=== PATIENT | female | born 1965 | race Hispanic/Latino ===

== ENCOUNTER 2017-03-14 04:15 | Emergency (ER) | payer OTHER ==
[~2017-03-14 04:15] MED LIST: LANS1COM10 PO; SERT50TA PO
[2017-03-14] MEDS ORDERED: ACETAMINOPHEN 325 MG TAB ONE (04:44)
[2017-03-14] MEDS ORDERED: KETOROLAC TROMETHAMINE 30MG/ML ONE (04:44)
== END 2017-03-14 06:00 | disposition home or self-care (01) ==
LOC: EDH 04:15
DX: G44.229 Chronic tension-type headache, not intractable (principal); G50.0 Trigeminal neuralgia; J10.1 Influenza due to other identified influenza virus with other respiratory manifestations; Z90.710 Acquired absence of both cervix and uterus
CPT/HCPCS: 87804 ×2; 96372; 99284; J1885

== ENCOUNTER 2017-08-08 16:36 | Emergency (ER) | payer OTHER ==
[2017-08-08] MEDS ORDERED: KETOROLAC TROMETHAMINE 30MG/ML ONE (16:54)
== END 2017-08-08 17:40 | disposition home or self-care (01) ==
LOC: EDH 16:36
DX: G50.0 Trigeminal neuralgia (principal); J45.909 Unspecified asthma, uncomplicated; Z90.710 Acquired absence of both cervix and uterus; Z90.49 Acquired absence of other specified parts of digestive tract; Z98.890 Other specified postprocedural states
CPT/HCPCS: 96372; 99283; J1885

== ENCOUNTER → 2018-06-14 | Outpatient (CLI) | payer OTHER ==
[2018-06-14 09:55] LABS: BASOPHILS % (AUTO) 0.8 % (0.0-5.0); EOSINOPHILS % (AUTO) 2.5 % (0.0-8.0); HEMATOCRIT 40.3 % (36-48); LYMPHOCYTES % (AUTO) 34.6 % (21.0-51.0); MEAN CORPUSCULAR HEMOGLOBIN 29.1 pg (27.0-33.0); MEAN CORPUSCULAR HGB CONC 34.5 g/dL (32.0-36.0); MEAN CORPUSCULAR VOLUME 84.4 fL (79-99); MONOCYTES % (AUTO) 5.8 % (3.0-13.0); NEUTROPHILS % (AUTO) 56.3 % (40.0-77.0); NUCLEATED RED BLOOD CELLS 0.1 % (0.0-0.19); PLATELET COUNT (AUTO) 169 K/uL (130-400); RED BLOOD CELL COUNT(AUTO) 4.78 MIL/uL (4.00-5.50); RED CELL DISTRIBUTION WIDTH 12.9 % (11.0-15.5); WHITE BLOOD COUNT (AUTO) 7.3 K/uL (4.8-10.8)
== END | disposition home or self-care (01) ==
LOC: LAB 09:36
PROVIDERS: ATTEND Internal Medicine
DX: J44.9 Chronic obstructive pulmonary disease, unspecified (principal); R06.02 Shortness of breath; R07.9 Chest pain, unspecified
CPT/HCPCS: 36415; 85025